=== PATIENT | female | born 1975 | race Caucasian/White ===

== ENCOUNTER 2016-12-23 01:06 | Emergency (ER) | payer OTHER ==
[~2016-12-23] VITALS: Ht 162.6 cm; Wt 52.2 kg
[~2016-12-23 01:06] MED LIST: CITA20TA9 PO
[2016-12-23 01:16] VITALS: BP 125/73
--- NOTE | 2016-12-23 01:35 | PHYS DOC ---
Past Medical History Past Medical History: No Pertinent History Past Surgical History: Other Additional Past Surgical Histo: BREAST AUGMENTATION Alcohol Use: Occasionally Drug Use: None Adult General Chief Complaint Chief Complaint: KNEE INJURY HPI HPI Patient is a 41 year old female presenting to the emergency department for evaluation of right knee pain that has been ongoing issue for years however she said she injured it with an twisting injury yesterday and has been severely painful and she has pain shooting down her leg. Patient says the pain is worse medially and she has had effusions over the past several months but she does not have an effusion currently. No weakness numbness tingling. Review of Systems Review of Systems Constitutional: Denies fever or chills [] Musculoskeletal: Denies back pain. + R knee joint pain [] Neurologic: Denies focal weakness or sensory changes [] Current Medications Current Medications Current Medications Medications (Trade) Dose Ordered Sig/Asad Start Time Stop Time Status Last Admin Dose Admin Acetaminophen/ Hydrocodone Bitart (Lortab 5/325) 2 tab 1X ONCE 12/23/16 01:45 12/23/16 01:46 Allergies Allergies Allergies Coded Allergies Type Severity Reaction Last Updated Verified Sulfa (Sulfonamide Antibiotics) Allergy Intermediate nausea/vomiting 05/21/14 Yes Physical Exam Physical Exam Constitutional: Well developed, well nourished, no acute distress, non-toxic appearance. [] Skin: Warm, dry, no erythema, no rash. [] Back: No tenderness, no CVA tenderness. [] Extremities: Right knee not swollen and there is no obvious deformity. She has pain with Rober's but no pain with anterior-posterior drawer test. Joint is stable with no laxity. Neurologic: Alert and oriented X 3, normal motor function, normal sensory function, no focal deficits noted. [] Current Patient Data Vital Signs Vital Signs Date Time Temp Pulse Resp B/P (MAP) Pulse Ox O2 Delivery O2 Flow Rate FiO2 12/23/16 01:16 98.4 99 18 98 Room Air 98.4 EKG EKG [] Radiology/Procedures Radiology/Procedures Right knee x-ray shows no obvious fracture dislocation soft tissue abnormality. Course & Med Decision Making Course & Med Decision Making Patient with right knee pain that is likely a meniscus injury. She needs an MRI or orthro follow-up follow-up given the time and has been bothering her and the symptoms that she is having. Patient aware and agreeable with plan for discharge and verbalized understanding of the above instructions Tyler Disclaimer Dragon Disclaimer This electronic medical record was generated, in whole or in part, using a voice recognition dictation system. Departure Departure Impression: Primary Impression: Right knee sprain Disposition: 01 HOME, SELF-CARE Condition: GOOD Referrals: JAXON HAYDEN MD (PCP) RYAN RAMIREZ MD Patient Instructions: Knee Sprain Scripts Hydrocodone/Apap 5-325 (NORCO 5-325 TABLET) 1 Each Tablet 1 TAB PO PRN Q6HRS Y for PAIN, #20 TAB 0 Refills Prov: ESTEFANY MURGUIA DO 12/23/16 Problem Qualifiers Primary Impression: Right knee sprain Encounter type: initial encounter Involved ligament of knee: unspecified ligament Qualified Codes: S83.91XA - Sprain of unspecified site of right knee , initial encounter ESTEFANY MURGUIA DO Dec 23, 2016 01:35
[2016-12-23] MEDS ORDERED: HYDROcodone/APAP 5/325MG 1 TAB TABLET PO ONE (01:45)
[2016-12-23] MEDS ORDERED: HYDR-971 PO (01:48)
--- NOTE | 2016-12-23 07:32 | RAD ---
Right knee 3 views. History: Right knee pain after an injury. 3 views were taken of the right knee. There is no fracture or joint effusion or osseous abnormality. Impression: 1. Negative right knee.
== END 2016-12-23 02:01 | disposition home or self-care (01) ==
LOC: ER 01:06
DX: S83.91XA Sprain of unspecified site of right knee, initial encounter (principal); Z88.2 Allergy status to sulfonamides; X58.XXXA Exposure to other specified factors, initial encounter; Y93.89 Activity, other specified; Y92.89 Other specified places as the place of occurrence of the external cause; Y99.8 Other external cause status
CPT/HCPCS: 73562; 99284